=== PATIENT | male | born 1965 | race Caucasian/White ===

== ENCOUNTER 2017-07-17 09:41 | Emergency (ER) | payer BC, OTHER ==
[2017-07-17] MEDS ORDERED: SODIUM CHLORIDE 0.9% 1,000 ML IV STA (10:21)
[2017-07-17] MEDS ORDERED: RX INFO: IV CONTRAST WAS GIVEN 1 EACH MISC MISCELLANE PRN (10:21)
--- NOTE | 2017-07-17 10:29 | ED ---
General Adult HPI - General Chief complaint: Chest Pain Stated complaint: epigastric pain Time Seen by Provider: 07/17/17 09:47 Source: patient, RN notes reviewed, old records reviewed Mode of arrival: ambulatory Limitations: no limitations - History of Present Illness Initial comments: This is a 31-year-old male the ER for evaluation. Patient is ER for evasive chest pain. Multiple issues of chest pain. Patient has high blood pressure today which he states is not normal for him. He is a smoker. Patient complains of right-sided chest pain left-sided chest pain substernal chest pain. Nothing was of right-sided flank pain and right calf pain. No recent travel history. No significant sick contacts. No nausea vomiting or diarrhea - Related Data Previous Rx's Medication Instructions Recorded Metoprolol Tartrate [Lopressor] 25 mg PO BID #60 tablet 07/17/17 Allergies Allergy/AdvReac Type Severity Reaction Status Date / Time No Known Allergies Allergy Verified 07/17/17 10:48 Review of Systems ROS Statement: Those systems with pertinent positive or pertinent negative responses have been documented in the HPI. ROS Other: All systems not noted in ROS Statement are negative. 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 Absent: scleral icterus, conjunctival injection, periorbital swelling ENT exam: Present: normal exam, mucous membranes moist Neck exam: Present: normal inspection. Absent: tenderness, meningismus, lymphadenopathy Respiratory exam: Present: normal lung sounds bilaterally. Absent: respiratory distress, wheezes, rales, rhonchi, stridor Cardiovascular Exam: Present: regular rate, normal rhythm, normal heart sounds. Absent: systolic murmur, diastolic murmur, rubs, gallop, clicks GI/Abdominal exam: Present: soft, normal bowel sounds. Absent: distended, tenderness, guarding, rebound, rigid Extremities exam: Present: normal inspection, full ROM, normal capillary refill. Absent: tenderness, pedal edema, joint swelling, calf tenderness Back exam: Present: normal inspection Neurological exam: Present: alert, oriented X3, CN II-XII intact Psychiatric exam: Present: normal affect, normal mood Skin exam: Present: warm, dry, intact, normal color. Absent: rash Course Vital Signs 07/17/17 07/17/17 07/17/17 09:43 10:01 12:01 Temperature 98.0 F Pulse Rate 102 H 63 81 Respiratory 18 18 20 Rate Blood Pressure 189/92 199/99 189/109 O2 Sat by Pulse 95 98 97 Oximetry EKG Findings - EKG Comments: EKG Findings:: EKG shows normal sinus rhythm rate of 66, PA 156, QRS 94, QTc 434 Medical Decision Making - Lab Data Result diagrams: 07/17/17 10:00 07/17/17 10:00 Lab Results 07/17/17 07/17/17 07/17/17 Range/Units 10:00 10:00 10:00 WBC 7.3 (3.8-10.6) k/uL RBC 5.32 (4.30-5.90) m/uL Hgb 15.8 (13.0-17.5) gm/dL Hct 47.3 (39.0-53.0) % MCV 89.0 (80.0-100.0) fL MCH 29.7 (25.0-35.0) pg MCHC 33.4 (31.0-37.0) g/dL RDW 12.8 (11.5-15.5) % Plt Count 266 (150-450) k/uL Neutrophils % 65 % Lymphocytes % 27 % Monocytes % 5 % Eosinophils % 1 % Basophils % 1 % Neutrophils # 4.7 (1.3-7.7) k/uL Lymphocytes # 2.0 (1.0-4.8) k/uL Monocytes # 0.4 (0-1.0) k/uL Eosinophils # 0.1 (0-0.7) k/uL Basophils # 0.1 (0-0.2) k/uL PT (9.0-12.0) sec INR (<1.2) APTT (22.0-30.0) sec Sodium 143 (137-145) mmol/L Potassium 4.6 (3.5-5.1) mmol/L Chloride 102 (98-107) mmol/L Carbon Dioxide 30 (22-30) mmol/L Anion Gap 11 mmol/L BUN 8 L (9-20) mg/dL Creatinine 0.80 (0.66-1.25) mg/dL Est GFR (CKD-EPI)AfAm >90 (>60 ml/min/1.73 sqM) Est GFR (CKD-EPI)NonAf >90 (>60 ml/min/1.73 sqM) Glucose 89 (74-99) mg/dL Calcium 9.3 (8.4-10.2) mg/dL Magnesium 2.0 (1.6-2.3) mg/dL Total Bilirubin 0.4 (0.2-1.3) mg/dL AST 21 (17-59) U/L ALT 25 (21-72) U/L Alkaline Phosphatase 99 (38-126) U/L Total Creatine Kinase 69 (55-170) U/L CK-MB (CK-2) 0.7 (0.0-2.4) ng/mL CK-MB (CK-2) Rel Index 1.0 Troponin I <0.012 (0.000-0.034) ng/mL Total Protein 7.0 (6.3-8.2) g/dL Albumin 4.2 (3.5-5.0) g/dL Lipase 30 (23-300) U/L 07/17/17 Range/Units 10:00 WBC (3.8-10.6) k/uL RBC (4.30-5.90) m/uL Hgb (13.0-17.5) gm/dL Hct (39.0-53.0) % MCV (80.0-100.0) fL MCH (25.0-35.0) pg MCHC (31.0-37.0) g/dL RDW (11.5-15.5) % Plt Count (150-450) k/uL Neutrophils % % Lymphocytes % % Monocytes % % Eosinophils % % Basophils % % Neutrophils # (1.3-7.7) k/uL Lymphocytes # (1.0-4.8) k/uL Monocytes # (0-1.0) k/uL Eosinophils # (0-0.7) k/uL Basophils # (0-0.2) k/uL PT 9.4 (9.0-12.0) sec INR 0.9 (<1.2) APTT 24.6 (22.0-30.0) sec Sodium (137-145) mmol/L Potassium (3.5-5.1) mmol/L Chloride (98-107) mmol/L Carbon Dioxide (22-30) mmol/L Anion Gap mmol/L BUN (9-20) mg/dL Creatinine (0.66-1.25) mg/dL Est GFR (CKD-EPI)AfAm (>60 ml/min/1.73 sqM) Est GFR (CKD-EPI)NonAf (>60 ml/min/1.73 sqM) Glucose (74-99) mg/dL Calcium (8.4-10.2) mg/dL Magnesium (1.6-2.3) mg/dL Total Bilirubin (0.2-1.3) mg/dL AST (17-59) U/L ALT (21-72) U/L Alkaline Phosphatase (38-126) U/L Total Creatine Kinase (55-170) U/L CK-MB (CK-2) (0.0-2.4) ng/mL CK-MB (CK-2) Rel Index Troponin I (0.000-0.034) ng/mL Total Protein (6.3-8.2) g/dL Albumin (3.5-5.0) g/dL Lipase (23-300) U/L Disposition Clinical Impression: Chest pain, Hypertension Disposition: HOME SELF-CARE Condition: Good Instructions: Chest Pain (ED), Hypertension (ED) Prescriptions: Metoprolol Tartrate [Lopressor] 25 mg PO BID #60 tablet Is patient prescribed a controlled substance at d/c from ED?: No Referrals: [facility],Clinic [Primary Care Provider] - 1-2 days
[2017-07-17 10:33] LABS: Basophils # (A) 0.1 k/uL (0-0.2); Basophils % (A) 1 %; Eosinophils # (A) 0.1 k/uL (0-0.7); Eosinophils % (A) 1 %; HCT 47.3 % (39.0-53.0); HGB 15.8 gm/dL (13.0-17.5); Lymphocytes % (A) 27 %; MCH 29.7 pg (25.0-35.0); MCHC 33.4 g/dL (31.0-37.0); Mean Platelet Volume 8.4; Monocytes # (A) 0.4 k/uL (0-1.0); Monocytes % (A) 5 %; Neutrophils # (A) 4.7 k/uL (1.3-7.7); Neutrophils % (A) 65 %; Platelet Count 266 k/uL (150-450); RBC 5.32 m/uL (4.30-5.90); RDW 12.8 % (11.5-15.5); WBC 7.3 k/uL (3.8-10.6)
[2017-07-17 10:41] LABS: ALT 25 U/L (21-72); AST 21 U/L (17-59); Albumin 4.2 g/dL (3.5-5.0); Alkaline Phosphatase 99 U/L (38-126); Anion Gap 11 mmol/L; Blood Urea Nitrogen 8 mg/dL (9-20); Calcium 9.3 mg/dL (8.4-10.2); Carbon Dioxide 30 mmol/L (22-30); Chloride 102 mmol/L (98-107); Glucose 89 mg/dL (74-99); Lipase 30 U/L (23-300); Potassium 4.6 mmol/L (3.5-5.1); Sodium 143 mmol/L (137-145); Total Bilirubin 0.4 mg/dL (0.2-1.3)
[2017-07-17 10:52] LABS: INR 0.9 (<1.2); Partial Thromboplastin Time 24.6 sec (22.0-30.0); Prothrombin Time 9.4 sec (9.0-12.0)
[2017-07-17 10:55] LABS: Creatine Kinase 69 U/L (55-170)
[2017-07-17 11:08] LABS: Creatine Kinase MB 0.7 ng/mL (0.0-2.4); Troponin I <0.012 ng/mL (0.000-0.034)
--- NOTE | 2017-07-17 11:41 | CT ---
EXAMINATION TYPE: CT angio chest DATE OF EXAM: 07/17/2017 COMPARISON: NONE HISTORY: Upper Abdominal pain and chest discomfort. CT DLP: 457 mGycm CONTRAST: CT chest with contrast and 3D reconstruction with MIP imaging is performed with IV Contrast, patient injected with 100 mL of Isovue 370. Contrast-enhanced CT of the chest was performed through the course of the pulmonary arteries with jazzy g and mediastinal window settings submitted. 3D reconstruction with MIP imaging was also performed. PULMONARY ARTERIES: The pulmonary arteries and their major tributaries are patent. I do not see tex dence for sizable filling defect to suggest pulmonary embolic process. LUNGS: The lungs are clear and free of infiltrate. No evidence for atelectasis. 6.6 mm pulmonary nodu le right lower lobe image 115 and 14. Short-term follow-up study is recommended in 3 months to assess for interval change. No additional nodules appreciated. No pleural effusion. MEDIASTINUM: Thoracic aorta is of normal caliber,however, evaluation is limited given timing of the contrast bolus. If there is concern for thoracic aortic pathology consider KRISTA. Correlate clinicall y . The heart is not enlarged. No evidence for mediastinal mass. No mediastinal lymph nodes greater than 1cm. HILAR STRUCTURES: No evidence for mass. No hilar lymph nodes greater than 1 cm. UPPER ABDOMEN: No significant abnormality is seen. IMPRESSION: 1. No evidence for Pulmonary embolism at this time. 2. Nonspecific right lower lobe pulmonary nodule. Short-term follow-up recommended.
--- NOTE | 2017-07-17 11:47 | CT ---
EXAMINATION TYPE: CT abdomen pelvis w con DATE OF EXAM: 07/17/2017 COMPARISON: NONE HISTORY: Upper Abdominal pain and chest discomfort. CT DLP: 1572.9 mGycm CONTRAST: CT scan of the abdomen and pelvis is performed without Oral Contrast and with IV Contrast, patient in jected with 100 mL of Isovue 370. FINDINGS: LUNG BASES-: Pulmonary nodule described on CT chest. No infiltrate. Small sliding-type hiatal hernia. LIVER/GB: No calcified gallstones. No solid space occupying hepatic lesion. Biliary tree is of nor mal caliber. Hepatic cyst and small focal granuloma. PANCREAS: No inflammation. No distinct mass. SPLEEN: No splenic enlargement. No lesion seen. Splenic granulomas identified. ADRENALS: No nodule. No thickening. KIDNEYS/BLADDER: Exophytic solid renal lesion mid pole right kidney posteriorly measuring 1.8 x 1.8 c m felt to reflect malignancy until proven otherwise. consult recommended. 1.2 cm cystic lesion mid pole right kidney. No left renal lesions. No hydronephrosis or nephrolithiasis. BOWEL: Normal appendix. Normal bowel caliber. No inflammation. GENITAL ORGANS: No gross abnormality. LYMPH NODES: No greater than 1cm abdominal or pelvic lymph nodes are appreciated. AORTA: No significant abnormality. OSSEOUS STRUCTURES: No significant abnormality is seen. OTHER: Fat-containing inguinal hernias noted.. IMPRESSION: 1. No acute intra-abdominal process identified at this time. 2. Solid right renal lesion suspicious for malignancy. consult recommended. 3. Solitary nodule right lower lobe. Metastatic disease is not excluded. 4. Cystic subcentimeter lesion within the anterior segment right hepatic lobe. Splenic and hepatic gr anuloma ptosis.
[2017-07-17] MEDS ORDERED: LABETALOL 5 MG/ML VIAL MDV IVP STA (12:53)
[2017-07-17 13:01] VITALS: RESP 18; TEMP 98.3
[2017-07-17 13:14] VITALS: BP 157/85; PULSE 55
== END 2017-07-17 13:20 | disposition home or self-care (01) ==
LOC: EC 09:41
DX: R07.2 Precordial pain (principal); I10 Essential (primary) hypertension; F17.200 Nicotine dependence, unspecified, uncomplicated
CPT/HCPCS: 36415; 71275; 74177; 80053; 82550; 82553; 83690; 83735; 84484; 85025; 85610; 85730; 93005; 96361; 96374; 99285

== ENCOUNTER 2017-08-09 22:07 | Emergency (ER) | payer OTHER ==
[2017-08-09 22:19] VITALS: RESP 18
[2017-08-09] MEDS ORDERED: ASPIRIN 81 MG PO STA (22:34)
--- NOTE | 2017-08-09 22:40 | ED ---
General Adult HPI - General Chief complaint: Arrhythmia/Palpitations Stated complaint: blood pressure/heart concerns/pain on left side Time Seen by Provider: 08/09/17 22:24 Source: patient Mode of arrival: ambulatory Limitations: no limitations - History of Present Illness Initial comments: This 51-year-old white male presents with multiple complaints. He states that he has been watching his blood pressure recently and his monitor apparently said that he had an abnormal rhythm and therefore he is worried that he may be having an arrhythmia. He denies any actual palpitations. He then apparently over the past day developed some pain to his left axillary region. He also had some pain to his left groin region medially. He developed a sensation of coldness and tingling to his left lower leg. He also relates a left hand and forearm numbness and cool sensation at times as well as some facial flushing. He denies any actual chest pain or shortness of breath. He apparently was here 2 weeks ago for some chest and/or abdominal pain. He had a computed tomography scan of his abdomen and pelvis at that time and states that it showed a lung and kidney nodule. He was discharged home at that time. He denies any known cardiac disease. He has never had a stress test or heart catheterization. He denies any leg pain or swelling. He states that he had encephalitis when he was in the and does have some chronic left upper and left lower extremity numbness. He denies any other complaints or modifying factors. - Related Data Previous Rx's Medication Instructions Recorded Metoprolol Tartrate [Lopressor] 25 mg PO BID #60 tablet 07/17/17 Allergies Allergy/AdvReac Type Severity Reaction Status Date / Time No Known Allergies Allergy Verified 08/09/17 22:19 Review of Systems ROS Statement: Those systems with pertinent positive or pertinent negative responses have been documented in the HPI. ROS Other: All systems not noted in ROS Statement are negative. Past Medical History Past Medical History: Hyperlipidemia, Hypertension Additional Past Medical History / Comment(s): encephalitis History of Any Multi-Drug Resistant Organisms: None Reported Past Surgical History: Ear Surgery Additional Past Surgical History / Comment(s): cataract Past Psychological History: No Psychological Hx Reported Smoking Status: Current every day smoker Past Alcohol Use History: None Reported Past Drug Use History: None Reported General Exam - General Exam Comments Initial Comments: GENERAL: The patient is well nourished and well hydrated. VITAL SIGNS: Heart rate, blood pressure, respiratory rate reviewed as recorded in nurse's notes. EYES: Pupils are round and reactive. Extraocular movements are intact. No conjunctival / lid redness or swelling. ENT: No external evidence of injury, swelling, or ecchymosis. Airway is patent. Throat is clear. NECK: Nontender. No swelling or evidence of injury. No subcutaneous emphysema. Trachea is midline. No thyroid mass. HEART: Regular rate and rhythm. Good peripheral pulses. LUNGS/CHEST: Breath sounds clear and equal bilaterally. No rales, rhonchi, or wheezes. No ecchymosis, subcutaneous emphysema, or tenderness. ABDOMEN: Abdomen soft without tenderness. No palpable masses or organomegaly. No peritoneal signs. No abdominal wall swelling or ecchymosis. EXTREMITIES: No extremity tenderness. Normal muscle tone and function. No thoracolumbar tenderness. NEUROLOGIC: Sensation is grossly intact. Cranial nerve exam reveals face is symmetrical, tongue is midline, speech is clear. SKIN: No abrasions or ecchymosis is noted. No induration or masses noted. PSYCHIATRIC: Alert and oriented. Appropriate behavior and judgment. Limitations: no limitations Course Vital Signs 08/09/17 22:14 Temperature 97.7 F Pulse Rate 67 Respiratory 18 Rate Blood Pressure 137/76 O2 Sat by Pulse 97 Oximetry Medical Decision Making - Medical Decision Making The patient was seen and examined. All diagnostics were reviewed. An IV is started and he is placed on a electronic device monitor. No ectopy is identified. The EKG shows a normal sinus rhythm at a rate of 65. There is no acute ST-T wave changes identified. The CO intervals 154, QRS duration is 96, and the QTC intervals 420. He does receive an aspirin orally. The x-ray did not show any acute processes. The laboratory is all essentially within normal limits/ unremarkable. He does get slightly bradycardic at times with his heart rate dropping down to approximately 55 on the heart monitor. His blood pressure is quite improved on recheck as well. The exact cause of his symptomatology is not definitively determined. It is felt as though it is very atypical for any cardiac ischemia but it is still possible and therefore he is offered admission to the hospital. A long discussion was held regarding risks benefits of admission versus discharge and he would prefer to the discharge. He also is worried about his blood pressure being elevated. It has been elevated at times but he did take his blood pressure medicine just prior to coming to the ER. He states that he will follow-up with his doctor tomorrow and arrange an outpatient stress test. He is instructed to return to the ER if symptoms do worsen. - Lab Data Result diagrams: 08/09/17 22:22 08/09/17 22:22 Lab Results 08/09/17 08/09/17 08/09/17 Range/Units 22:22 22:22 22:22 WBC 7.3 (3.8-10.6) k/uL RBC 5.20 (4.30-5.90) m/uL Hgb 15.5 (13.0-17.5) gm/dL Hct 45.9 (39.0-53.0) % MCV 88.2 (80.0-100.0) fL MCH 29.8 (25.0-35.0) pg MCHC 33.8 (31.0-37.0) g/dL RDW 12.6 (11.5-15.5) % Plt Count 210 (150-450) k/uL Neutrophils % 60 % Lymphocytes % 29 % Monocytes % 8 % Eosinophils % 2 % Basophils % 1 % Neutrophils # 4.4 (1.3-7.7) k/uL Lymphocytes # 2.1 (1.0-4.8) k/uL Monocytes # 0.6 (0-1.0) k/uL Eosinophils # 0.1 (0-0.7) k/uL Basophils # 0.1 (0-0.2) k/uL PT (9.0-12.0) sec INR (<1.2) APTT (22.0-30.0) sec Sodium 138 (137-145) mmol/L Potassium 4.6 (3.5-5.1) mmol/L Chloride 100 (98-107) mmol/L Carbon Dioxide 27 (22-30) mmol/L Anion Gap 11 mmol/L BUN 13 (9-20) mg/dL Creatinine 0.90 (0.66-1.25) mg/dL Est GFR (CKD-EPI)AfAm >90 (>60 ml/min/1.73 sqM) Est GFR (CKD-EPI)NonAf >90 (>60 ml/min/1.73 sqM) Glucose 87 (74-99) mg/dL Calcium 9.4 (8.4-10.2) mg/dL Magnesium 2.1 (1.6-2.3) mg/dL Total Bilirubin 0.4 (0.2-1.3) mg/dL AST 20 (17-59) U/L ALT 33 (21-72) U/L Alkaline Phosphatase 91 (38-126) U/L Total Creatine Kinase 106 (55-170) U/L CK-MB (CK-2) 0.7 (0.0-2.4) ng/mL CK-MB (CK-2) Rel Index 0.7 Troponin I <0.012 (0.000-0.034) ng/mL Total Protein 7.0 (6.3-8.2) g/dL Albumin 4.2 (3.5-5.0) g/dL 08/09/17 Range/Units 22:22 WBC (3.8-10.6) k/uL RBC (4.30-5.90) m/uL Hgb (13.0-17.5) gm/dL Hct (39.0-53.0) % MCV (80.0-100.0) fL MCH (25.0-35.0) pg MCHC (31.0-37.0) g/dL RDW (11.5-15.5) % Plt Count (150-450) k/uL Neutrophils % % Lymphocytes % % Monocytes % % Eosinophils % % Basophils % % Neutrophils # (1.3-7.7) k/uL Lymphocytes # (1.0-4.8) k/uL Monocytes # (0-1.0) k/uL Eosinophils # (0-0.7) k/uL Basophils # (0-0.2) k/uL PT 9.5 (9.0-12.0) sec INR 1.0 (<1.2) APTT 25.5 (22.0-30.0) sec Sodium (137-145) mmol/L Potassium (3.5-5.1) mmol/L Chloride (98-107) mmol/L Carbon Dioxide (22-30) mmol/L Anion Gap mmol/L BUN (9-20) mg/dL Creatinine (0.66-1.25) mg/dL Est GFR (CKD-EPI)AfAm (>60 ml/min/1.73 sqM) Est GFR (CKD-EPI)NonAf (>60 ml/min/1.73 sqM) Glucose (74-99) mg/dL Calcium (8.4-10.2) mg/dL Magnesium (1.6-2.3) mg/dL Total Bilirubin (0.2-1.3) mg/dL AST (17-59) U/L ALT (21-72) U/L Alkaline Phosphatase (38-126) U/L Total Creatine Kinase (55-170) U/L CK-MB (CK-2) (0.0-2.4) ng/mL CK-MB (CK-2) Rel Index Troponin I (0.000-0.034) ng/mL Total Protein (6.3-8.2) g/dL Albumin (3.5-5.0) g/dL Disposition Clinical Impression: Left arm pain, Left groin pain, Paresthesias Disposition: HOME SELF-CARE Condition: Good Instructions: Paresthesia (ED), Arm Pain (ED), Leg Pain (ED) Is patient prescribed a controlled substance at d/c from ED?: No Referrals: [facility],Clinic [Primary Care Provider] - 1-2 days Time of Disposition: 00:26
[2017-08-09 23:04] LABS: Basophils # (A) 0.1 k/uL (0-0.2); Basophils % (A) 1 %; Eosinophils # (A) 0.1 k/uL (0-0.7); Eosinophils % (A) 2 %; HCT 45.9 % (39.0-53.0); HGB 15.5 gm/dL (13.0-17.5); Lymphocytes # (A) 2.1 k/uL (1.0-4.8); Lymphocytes % (A) 29 %; MCH 29.8 pg (25.0-35.0); MCHC 33.8 g/dL (31.0-37.0); MCV 88.2 fL (80.0-100.0); Mean Platelet Volume 8.3; Monocytes # (A) 0.6 k/uL (0-1.0); Monocytes % (A) 8 %; Neutrophils # (A) 4.4 k/uL (1.3-7.7); Neutrophils % (A) 60 %; Platelet Count 210 k/uL (150-450); RDW 12.6 % (11.5-15.5); WBC 7.3 k/uL (3.8-10.6)
[2017-08-09 23:15] LABS: ALT 33 U/L (21-72); AST 20 U/L (17-59); Albumin 4.2 g/dL (3.5-5.0); Alkaline Phosphatase 91 U/L (38-126); Anion Gap 11 mmol/L; Blood Urea Nitrogen 13 mg/dL (9-20); Calcium 9.4 mg/dL (8.4-10.2); Carbon Dioxide 27 mmol/L (22-30); Chloride 100 mmol/L (98-107); Glucose 87 mg/dL (74-99); Magnesium 2.1 mg/dL (1.6-2.3); Potassium 4.6 mmol/L (3.5-5.1); Sodium 138 mmol/L (137-145); Total Bilirubin 0.4 mg/dL (0.2-1.3)
[2017-08-09 23:17] LABS: Partial Thromboplastin Time 25.5 sec (22.0-30.0); Prothrombin Time 9.5 sec (9.0-12.0)
[2017-08-09 23:48] LABS: Creatine Kinase 106 U/L (55-170)
[2017-08-09 23:59] LABS: Creatine Kinase MB 0.7 ng/mL (0.0-2.4); Troponin I <0.012 ng/mL (0.000-0.034)
--- NOTE | 2017-08-10 00:27 | XR ---
EXAMINATION TYPE: XR chest 2V DATE OF EXAM: 08/09/2017 COMPARISON: NONE HISTORY: Dizziness. Arrhythmia. TECHNIQUE: Frontal and lateral views of the chest are obtained. FINDINGS: Heart and mediastinum are normal. Lungs are clear. Diaphragm is normal. There are chest le ads. Bony thorax is intact. IMPRESSION: Normal chest
[2017-08-10 00:36] VITALS: BP 146/80; PULSE 57; TEMP 97.2
== END 2017-08-10 00:43 | disposition home or self-care (01) ==
LOC: EC 22:07
DX: M79.622 Pain in left upper arm (principal); R10.32 Left lower quadrant pain; R20.2 Paresthesia of skin; R00.1 Bradycardia, unspecified; I10 Essential (primary) hypertension; R20.0 Anesthesia of skin; F17.200 Nicotine dependence, unspecified, uncomplicated
CPT/HCPCS: 36415; 71046; 80053; 82550; 82553; 83735; 84484; 85025; 85610; 85730; 93005; 99283

== ENCOUNTER → 2017-11-18 | Outpatient (CLI) | payer OTHER ==
[2017-11-18 10:43] LABS: Blood Urea Nitrogen 13 mg/dL (9-20)
--- NOTE | 2017-11-18 12:28 | CT ---
EXAMINATION TYPE: CT angio chest DATE OF EXAM: 11/18/2017 COMPARISON: 07/17/2017 HISTORY: Follow up pulmonary nodule and renal mass. CT DLP: 390.82 mGycm CONTRAST: CTA thoracic aorta with 3-D reconstruction is performed and with IV Contrast, patient injected with 1 00 mL of Isovue 370. Contrast CTA of the thoracic aorta was performed from the lung apex through the upper abdomen. 3D re construction imaging obtained at a separate workstation. CT Chest: THORACIC AORTA: No evidence for thoracic aortic aneurysm. Mild atheromatous changes seen. There is n o evidence for dissection or periaortic collection. LUNGS: Stable indeterminant the right lower lobe pulmonary nodule measuring 6.6 mm in greatest dimens ion versus 6.6 mm previously. No new nodules identified. Additional nodular density right lower lobe measures 3.6 mm versus 6.7 mm previously. 2 adjacent 3 mm pulmonary nodules are stable about the left hilum. No evidence for infiltrate. No pleural effusion or CT evidence of interstitial lung disease. MEDIASTINUM: No evidence for mediastinal hematoma. The heart is not enlarged. No evidence for med iastinal mass or adenopathy. HILAR STRUCTURES: No evidence for mass. No hilar adenopathy is appreciated. OTHER: See report of abdomen for solid right renal lesion. IMPRESSION- 1. Stable nonspecific pulmonary nodularity. Continued follow-up is advised.
--- NOTE | 2017-11-18 14:21 | CT ---
EXAMINATION TYPE: CT abdomen w con DATE OF EXAM: 11/18/2017 COMPARISON: 07/17/2017 HISTORY: Follow up pulmonary nodule and renal mass. CT DLP: 819.2 mGycm CONTRAST: CT scan of the abdomen is performed with Oral Contrast and with IV Contrast, patient injected with 10 0 mL of Isovue 370. FINDINGS: LUNG BASES-: See CT report of the chest from the same day. LIVER/GB: No calcified gallstones. No solid space occupying hepatic lesion. 8 mm cyst anterior seg ment right hepatic lobe. Biliary tree is of normal caliber. PANCREAS: No inflammation. No distinct mass. SPLEEN: No splenic enlargement. No lesion seen. Splenic granulomas noted. ADRENALS: No nodule. No thickening. KIDNEYS/BLADDER: Exophytic solid right renal mass measures 1.8 x 1.7 cm unchanged from prior measurem ent of 1.8 x 1.8 cm. No new solid renal lesions are identified. Small cyst is noted upper pole right kidney measuring 1.1 cm. BOWEL: Normal appendix. Normal bowel caliber. No inflammation. LYMPH NODES: No greater than 1cm abdominal or pelvic lymph nodes are appreciated. AORTA: No significant abnormality. OSSEOUS STRUCTURES: No significant abnormality is seen. OTHER: No significant additional abnormality is seen. IMPRESSION: 1. Exophytic solid right renal mass measures 1.8 x 1.7 cm unchanged from prior measurement of 1.8 x 1 .8 cm. No new solid renal lesions are identified.
== END | disposition home or self-care (01) ==
LOC: RADCTMAIN 10:01
DX: R91.1 Solitary pulmonary nodule (principal); N28.89 Other specified disorders of kidney and ureter
CPT/HCPCS: 82565; 84520; 74160; 71275; 36415; Q9967

== ENCOUNTER → 2017-11-18 | Outpatient (CLI) | payer OTHER | END | disposition home or self-care (01) | LOC: RADCTMAIN 09:56 | PROVIDERS: ATTEND Urology | DX: Z53.9 Procedure and treatment not carried out, unspecified reason (principal) ==

== ENCOUNTER → 2018-05-25 | Outpatient (CLI) | payer OTHER ==
--- NOTE | 2018-05-25 09:46 | CT ---
EXAMINATION TYPE: CT angio chest DATE OF EXAM: 05/25/2018 COMPARISON: CTA chest November 18, [address] July 17, 2017 HISTORY: Solitary pulmonary nodule CT DLP: 366.0 mGycm. Automated Exposure Control for Dose Reduction was Utilized. CONTRAST: CTA scan of the thorax is performed with IV Contrast, patient injected with 100 mL of Isovue 300, pul monary embolism protocol. MIP Images are created on CT scanner and reviewed. FINDINGS: LUNGS: There is 8 x 4 mm lateral right lower lobe nodule axial image 117 grossly stable in size and a ppearance from last 2 CTs accounting for technical differences. 2 adjacent 3 mm nodules left hilar l evel axial image 81 are stable. No new noncalcified nodules or masses are present. There is stable 6 mm calcified nodule or granuloma noted. There is stable calcified 3 mm nodule left hilar region anter iorly axial image 80. There is no pleural effusion or pneumothorax seen. The tracheobronchial tree i s patent. MEDIASTINUM: There is poor bolus without central pulmonary embolism. There are no greater than 1 cm hilar or mediastinal lymph nodes. No cardiomegaly or pericardial effusion is seen. Aorta shows no a neurysmal change or dissection. Normal three-vessel origin is present. OTHER: Please refer to same day CT abdomen report for complete details on the abdomen. IMPRESSION: Stable dominant 8 x 4 mm noncalcified nodule right lower lobe. No new nodules are evident . Follow-up CT in 1 year time is advised to document two-year stability.
--- NOTE | 2018-05-25 10:15 | CT ---
EXAMINATION TYPE: CT abdomen wo/w con DATE OF EXAM: 05/25/2018 COMPARISON: CT abdomen November 18, 2017 and July 17, 2017 HISTORY: Lesion on right kidney CT DLP: 1321.40 mGycm, Automated Exposure Control for Dose Reduction was Utilized. CONTRAST: CT scan of the abdomen is performed with oral and without and with IV Contrast, patient injected with 100 mL of Isovue 300. FINDINGS: LUNG BASES: Please refer to same day CTA chest report for complete details about the lung bases. LIVER/GB: There are few small subcentimeter hypodense lesions scattered throughout the hepatic dome a s well as few small cortical calculi. Lesions are stable and too small to further characterize per pr esumed benign. PANCREAS: No significant abnormality is seen. SPLEEN: Multiple calcifications throughout the spleen are redemonstrated. Liver and spleen findings a re presumed product of old granulomatous disease. ADRENALS: No significant abnormality is seen. KIDNEYS: Noncontrast images show no renal calculi bilaterally. Postcontrast images show symmetric cor tical medullary uptake and excretion from both kidneys without evidence of hydronephrosis bilaterally . Left kidney shows stable subcentimeter low dense lesion posterior lateral aspect seen best series 7 image 24 mid pole level 2 small to further characterize but presumed benign simple cyst. Right kidne y shows exophytic low dense lesion measuring 1.8 x 1.2 cm axial image 20 series 7 consistent with sim ple thin-walled cyst perhaps slightly larger in size from prior studies still benign morphology. Ther e is however inferior and medial to this exophytic enhancing 2.0 x 1.6 cm solid mass not significantl y changed from prior CTs but suspicious for focal renal cell carcinoma. No new masses are evident. No adjacent adenopathy is seen. Patency of right renal vein is noted. BOWEL: Oral contrast reaches level of the proximal sigmoid colon. There is suboptimal evaluation of s tomach due to poor contrast distention as contrast has cleared. There is no suspicious small or large bowel dilatation. LYMPH NODES: No greater than 1cm abdominal lymph nodes are appreciated. OSSEOUS STRUCTURES: Moderate disc space narrowing with vacuum disc phenomenon L5-S1 level is present. OTHER: No significant additional abnormality is seen. IMPRESSION: Stable suspicious 2.0 cm exophytic posterior medial right midpole mass worrisome for foca l renal cell carcinoma. This lesion may be amenable to imaging guided RFA, microwave ablation, or cry oablation. Consider interventional referral if has not been performed.
== END | disposition home or self-care (01) ==
LOC: RADCTMAIN 07:26
DX: R91.1 Solitary pulmonary nodule (principal); R93.5 Abnormal findings on diagnostic imaging of other abdominal regions, including retroperitoneum
CPT/HCPCS: 74170; 71275; Q9967

== ENCOUNTER 2018-07-13 07:50 | Day surgery (SDC) | payer OTHER ==
[2018-07-13 08:52] LABS: Mean Platelet Volume 7.9; Platelet Count 239 k/uL (150-450)
[2018-07-13 08:57] LABS: INR 0.9 (<1.2); Prothrombin Time 9.9 sec (9.0-12.0)
[2018-07-13 10:36] VITALS: RESP 18; TEMP 98.3
[2018-07-13 12:01] VITALS: BP 122/74; PULSE 56
--- NOTE | 2018-07-13 14:08 | CT ---
EXAMINATION TYPE: CT biopsy renal RT DATE OF EXAM: 07/13/2018 HISTORY: Right renal mass COMPARISON: CT 05/25/2018 Maximal barrier technique was utilized. The skin overlying a suitable path to the lesion was localiz ed using CT and the overlying skin was prepped and draped. Lidocaine used for local anesthesia. A s kin ida made with a scalpel. Using CT guidance, access was gained to the lesion with a 17-gauge erich de needle. Coaxial placement of an 18-gauge needle was then performed then a coaxial core biopsy spec imen submitted to pathology in formalin. 1 pass performed in all. Following the procedure no immedi ate complications. The patient is discharged in stable condition. Hemostasis achieved. IMPRESSION: SUCCESSFUL CT GUIDED CORE RENAL MASS BIOPSY. PATHOLOGY PENDING. THIS PROCEDURE WAS PERFORMED BY THE UNDERSIGNED.
== END 2018-07-13 12:12 | disposition home or self-care (01) ==
LOC: RADPROMAIN 07:50 → 1SOBS 10:15 → RADPROMAIN 12:12
PROVIDERS: ATTEND Urology
DX: C64.1 Malignant neoplasm of right kidney, except renal pelvis (principal)
CPT/HCPCS: 36415; 77012; 85049; 85610; 88305; 88341; 88342

== ENCOUNTER → 2019-01-10 | Outpatient (CLI) | payer OTHER ==
[2019-01-10 13:24] LABS: African American GFR (CKD) >90 (>60 ml/min/1.73 sqM); Blood Urea Nitrogen 13 mg/dL (9-20); Non-African American GFR(CKD) >90 (>60 ml/min/1.73 sqM)
--- NOTE | 2019-01-10 15:37 | CT ---
EXAMINATION TYPE: CT abdomen pelvis wo/w con DATE OF EXAM: 01/10/2019 COMPARISON: 07/13/2018, 05/25/2018 INDICATION: Follow up for right renal cancer. DLP: 1203.9 mGycm, Automated exposure control for dose reduction was used. CONTRAST: 100ml mL of Isovue 300. Study performed with Oral Contrast TECHNIQUE: Axial images were obtained from above the diaphragm to the pubic rami in the axial plane a t 5 mm thick sections. Reconstructed images are reviewed on the computer in the coronal plane. FINDINGS: Limited CT sections are obtained the lung bases. The initial lung window there is an area of increas ed density within the right middle lobe. Series 6 image 1.. A 0.6 cm posterior-lateral left lung nod ule is diminished in size over the interval. A 0.9 x 0.5 cm peripheral posterior lateral right lower lobe nodules present maybe 1 mm larger than comparison. A 0.4 cm nodules in the posterior lateral lef t lung base. CT ABDOMEN: Liver: Normal Spleen: Multiple calcified splenic granulomata are present. Pancreas: Normal Adrenal glands: The adrenal glands are normal. Gallbladder: Normal Kidneys: No masses are evident. No hydronephrosis is present. No cysts are present. Delayed images were obtained through the kidneys, which remain unremarkable. Aorta: Normal Inferior vena cava: Normal. CT PELVIS: Loops of bowel within the abdomen and pelvis are normal. There are loops of bowel which are incom pletely distended or lack oral contrast limiting their evaluation. Appendix: Normal as visualized. Urinary bladder: Normal. Genitourinary structures: Prostate is prominent. Osseous structures: No suspicious lytic or sclerotic lesions. IMPRESSIONS: 1. No suspicious acute changes CT abdomen or pelvis. 2. There are some new nodules identified at the lung bases discussed above. Consider CT chest for add itional evaluation. A static disease is not excluded
== END | disposition home or self-care (01) ==
LOC: RADCTMAIN 12:45
DX: C65.9 Malignant neoplasm of unspecified renal pelvis (principal); R91.8 Other nonspecific abnormal finding of lung field
CPT/HCPCS: 82565; 84520; 74178; 36415; Q9967

== ENCOUNTER → 2019-02-02 | Outpatient (CLI) | payer OTHER ==
[2019-02-02 08:55] LABS: African American GFR (CKD) >90 (>60 ml/min/1.73 sqM); Blood Urea Nitrogen 11 mg/dL (9-20)
--- NOTE | 2019-02-02 10:55 | CT ---
EXAMINATION TYPE: CT chest wo/w con DATE OF EXAM: 02/02/2019 COMPARISON: CT chest 05/25/2018 HISTORY: Abnormal findings CT DLP: 635.20 mGycm Automated exposure control for dose reduction was used. CONTRAST: CT scan of the chest is performed without and with IV Contrast, patient injected with 100 ml mL of Is ovue 300. FINDINGS: LUNGS: The lungs are stable, there is no concerning parenchymal mass or nodule identified. Calcified nodule in the left upper lobe is also present on axial image #35. There is no pleural effusion or pn eumothorax seen. The tracheobronchial tree is patent. MEDIASTINUM: There are no greater than 1 cm hilar or mediastinal lymph nodes. No pericardial effusi on is seen. There is a calcified left hilar node. AORTA: No additional significant abnormality is seen. OTHER: Scattered calcified nodules are present within the spleen and liver. Some low dense foci with in the liver likely represent cysts and are unchanged. Low dense exophytic focus within the right kid [place] posterior margin is stable. There is a soft tissue mass however which was seen on prior CT along the posterior margin of the midpole the right kidney measuring 2.3 cm which shows enhancement on prio r CT, is of soft tissue attenuation as on prior. Correlate with pathologic findings from renal biopsy of 07/13/2018. IMPRESSION: Findings likely represent old granulomatous disease. Correlate with pathologic report fo r posterior right renal mass.
== END | disposition home or self-care (01) ==
LOC: RADCTMAIN 08:15
DX: R93.89 Abnormal findings on diagnostic imaging of other specified body structures (principal)
CPT/HCPCS: 82565; 84520; 71270; 36415; Q9967

== ENCOUNTER → 2019-11-24 | Outpatient (CLI) | payer OTHER ==
[2019-11-24 11:26] LABS: African American GFR (CKD) >90 (>60 ml/min/1.73 sqM); Blood Urea Nitrogen 8 mg/dL (9-20); Non-African American GFR(CKD) >90 (>60 ml/min/1.73 sqM)
--- NOTE | 2019-11-24 12:11 | CT ---
EXAMINATION TYPE: CT ChestAbdPelvis wo/w con DATE OF EXAM: 11/24/2019 COMPARISON: 02/02/2019 HISTORY: follow up pulmonary nodule, renal cancer CT DLP: 1311.2 mGycm CONTRAST: CT scan of the chest, abdomen and pelvis is performed with Oral Contrast and without and with IV Cont rast, patient injected with 100 mL of Isovue 300. CT Chest: LUNGS: 4 mm nodules right upper lobe image 31 are stable. 5 mm nodule right middle lobe is unchanged as well. 4 mm nodule right lower lobe image 42 is stable. 4.5 mm left lower lobe pulmonary nodule minnie ge 50 is unchanged. Calcified granuloma left perihilar region. Calcified granuloma left upper lobe an teriorly. 7 mm right lower lobe pulmonary nodule is stable image 48. No new nodules seen. No infiltra te or mass. No volume loss evident. MEDIASTINUM: Thoracic aorta is of normal caliber. The heart is not enlarged. No evidence for media stinal mass or adenopathy. HILAR STRUCTURES: No evidence for mass. No hilar adenopathy is appreciated. OTHER: No significant abnormality. CONTRAST CT ABDOMEN AND PELVIS FINDINGS: LIVER/GB: No calcified gallstones. Hepatic calcifications noted. Hepatic cysts also seen. No space occupying hepatic lesion. Biliary tree is of normal caliber. PANCREAS: No inflammation. No distinct mass. SPLEEN: No splenic enlargement. No lesion seen. Calcified granulomas noted. ADRENALS: No nodule. No thickening. KIDNEYS/BLADDER: No hydronephrosis. No nephrolithiasis. Solid mass mid pole right kidney posteriorl y measures 2.1 cm and is felt to reflect malignancy until proven otherwise. Simple cyst mid to upper pole right kidney is also unchanged and measures 2 cm. BOWEL: Normal appendix. Normal bowel caliber. No inflammation. GENITAL ORGANS: No gross abnormality. LYMPH NODES: No greater than 1cm abdominal or pelvic lymph nodes are appreciated. AORTA: No significant abnormality. OSSEOUS STRUCTURES: No significant abnormality is seen. OTHER: No significant additional abnormality is seen. IMPRESSION: 1. Solid mass right kidney is felt to reflect malignancy until proven otherwise. Correlate clinically . 2. Stable scattered pulmonary nodules may reflect calcified and noncalcified granulomatous disease. N odules of other etiology not excluded. Stability over a two-year timeframe should be documented radio graphically. 3. Hepatic cysts.
== END | disposition home or self-care (01) ==
LOC: RADCTMAIN 09:33
DX: R91.8 Other nonspecific abnormal finding of lung field (principal); K76.89 Other specified diseases of liver; N28.89 Other specified disorders of kidney and ureter; C65.9 Malignant neoplasm of unspecified renal pelvis; R91.1 Solitary pulmonary nodule
CPT/HCPCS: 82565; 84520; 71270; 74178; 36415; Q9967

== ENCOUNTER → 2021-11-21 | Outpatient (CLI) | payer OTHER ==
[2021-11-21 15:29] LABS: African American GFR (CKD) >90 (>60 ml/min/1.73 sqM); Blood Urea Nitrogen 10 mg/dL (9-20); Non-African American GFR(CKD) >90 (>60 ml/min/1.73 sqM)
--- NOTE | 2021-11-21 17:08 | CT ---
EXAMINATION TYPE: CT ChestAbdPelvis wo/w con CT DLP: 1544.90 mGycm, Automated exposure control for dose reduction was used. DATE OF EXAM: 11/21/2021 4:09 PM COMPARISON: CT chest and pelvis 11/24/2019, CT chest 02/02/2019, CT abdomen pelvis 01/10/2019, CT renal biopsy 07/13/2018. CLINICAL INDICATION:Male, 55 years old with history of D49.519; PHH, f/u rt kidney ca. obs for mets Technique: Multiple axial images of the chest, abdomen, and pelvis were obtained before and following the intravenous administration of 100 mL Isovue-300. Oral contrast was administered. Two-dimensional coronal and sagittal reconstructions were obtained. Findings: CHEST: LUNGS/ PLEURA: Minimal biapical pleural-parenchymal scarring. No pneumothorax, pleural effusion, foc al consolidation. Stable 4 mm right upper lobe pulmonary nodule (series 4, image 36). Stable 5 mm lef t lower lobe pulmonary nodule (series 4, image 46). Calcified granulomas redemonstrated. No new or en larging pulmonary nodules. AIRWAY: Patent and unremarkable.. HEART: Size within normal limits. . MEDIASTINUM: No gross evidence of adenopathy. VASCULATURE: No aortic aneurysm. MUSCULOSKELETAL: No acute osseous abnormalities. No aggressive osseous lesions. SOFT TISSUES/LYMPH NODES: Unremarkable. LOWER NECK: No significant findings. ABDOMEN: ABDOMEN LIVER: Noncirrhotic morphology. Scattered punctate calcified granulomas. Stable subcentimeter hyperat tenuating foci within both hepatic lobes which are too small to characterize. GALLBLADDER AND BILE DUCTS: Unremarkable. PANCREAS: Unremarkable. SPLEEN: Scattered punctate calcified granulomas. No splenic enlargement. ADRENAL GLANDS: Unremarkable. KIDNEYS AND URETERS: No renal or ureteral calculi. No hydronephrosis. Stable solid peripheral enhanci ng exophytic mass from the mid pole the right kidney measuring 2.3 x 1.6 cm. Stable right mid kidney exophytic cyst measuring up to 2 cm. Additional subcentimeter hypodensity focus of the left kidney is stable and too small accurately characterize. PELVIS BLADDER: Unremarkable REPRODUCTIVE: Unremarkable. ABDOMEN & PELVIS STOMACH AND BOWEL: Stomach and duodenum are unremarkable. No focal wall thickening or surrounding inf lammatory changes. No evidence of bowel obstruction. PERITONEUM: No evidence of pneumoperitoneum or free fluid. VASCULATURE: No evidence of aortic aneurysm. MUSCULOSKELETAL: No acute osseous abnormalities. No aggressive osseous lesions. Mild degenerative grant nges of the spine at L5-S1 with disc space narrowing, endplate sclerosis, vacuum disc disease. Mild r etrolisthesis of L5 on S1. LYMPH NODES: No gross evidence for lymphadenopathy. SOFT TISSUE/ABDOMINAL WALL: Unremarkable IMPRESSION: 1. Stable solid right renal enhancing exophytic mass from prior examination 11/24/2019. Correlation wi biopsy results is recommended. No evidence for metastatic disease within the abdomen and pelvis. 2. Sequelae of granulomatous disease. 3. Stable pulmonary nodules dating back to 2021 and considered benign. No evidence for metastatic di sease within the chest.
== END | disposition home or self-care (01) ==
LOC: RADCTMAIN 13:56
DX: D49.511 Neoplasm of unspecified behavior of right kidney (principal); J84.10 Pulmonary fibrosis, unspecified; R91.8 Other nonspecific abnormal finding of lung field
CPT/HCPCS: 82565; 84520; 71270; 74178; 36415; Q9967

== ENCOUNTER → 2023-08-04 | Outpatient (CLI) | payer OTHER ==
--- NOTE | 2023-08-06 09:29 | US ---
EXAMINATION TYPE: US kidneys/renal and bladder DATE OF EXAM: 08/04/2023 COMPARISON: NONE CLINICAL INDICATION: Male, 57 years old with history of C64.1 MALIGNANT NEOPLASM OF RIGHT KIDNEY, EXC EPT R; known lesion on right kidney, no symptoms EXAM MEASUREMENTS: Right Kidney: 10.1 x 4.7 x 5.1 cm Left Kidney: 9.4 x 4.5 x 6.0 cm Right Kidney: lateral cyst = 2.2 x 1.7 x 1.4cm , and solid lesion mid pole = 2.1 x 1.5 x 1.3cm Left Kidney: No hydronephrosis or masses seen Bladder: wnl Bilateral Jets seen: left There is no evidence for hydronephrosis at this point in time. No nephrolithiasis is seen. No stanton s are identified. The urinary bladder is anechoic. Bilateral ureteral jets are seen. IMPRESSION: Solid lesion right kidney. Further evaluation with contrast-enhanced CT is recommended.
== END | disposition home or self-care (01) ==
LOC: RADUSWWP 13:13
PROVIDERS: ATTEND Urology
DX: C64.1 Malignant neoplasm of right kidney, except renal pelvis (principal); N28.89 Other specified disorders of kidney and ureter
CPT/HCPCS: 76770

== ENCOUNTER → 2023-10-12 | Outpatient (CLI) | payer OTHER ==
--- NOTE | 2023-10-12 11:45 | CTL ---
EXAMINATION TYPE: CT Low Dose Lung DATE OF EXAM ORDERED: 10/12/2023 HISTORY: Current smoker, 34 pack-year history. Lung cancer screening CT DLP: [address]DI: 2.11 mGy Automated exposure control for dose reduction was used. SCREENING VISIT: First screening visit COMPARISON: CT chest abdomen pelvis 11/21/2021, 11/24/2019, CT chest 02/02/2019. TECHNIQUE: Low dose computed tomography scan was performed through the chest at 1 mm thick sections a nd reconstructed images in multiple planes at 1 mm and [address] DIAGNOSTIC QUALITY: Satisfactory FINDINGS: Nodules: Scattered calcified granulomas. Stable right lower lobe 5.5 mm pulmonary nodule (series 8, image 51). Stable right lower lobe 5.8 mm pulmonary nodule (series 8, image 43). Stable left upper lobe 4.7 mm pulmonary nodule (series 8, image 36). Stable 5.3 mm nodule along the left major fissure favored to r epresent an intrafissural lymph node (series 8, image 36). Stable 3.8 mm nodule along the left major fissure favored to represent intrafissural lymph node (series 8, image 45). Stable left lower lobe 5. 2 mm pulmonary nodule (series 8, image 54). No new or enlarging pulmonary nodules. LUNGS: COPD: Severity: None Fibrosis: Severity: None Lymph nodes: None Other findings: None RIGHT PLEURAL SPACE: Effusion: None Calcification: None Thickening: None Pneumothorax: None LEFT PLEURAL SPACE: Effusion: None Calcification: None Thickening: None Pneumothorax: None HEART: Heart Size: Normal Coronary Calcification: None Pericardial Effusion: None OTHER FINDINGS: Upper abdomen: Punctate calcified granulomas within the spleen. Partial visualization of exophytic ri ght renal 1.9 cm cyst. Bony thorax: None Supraclavicular region: None Other: None IMPRESSION: Stable scattered pulmonary nodules measuring less than 6 mm. No new or enlarging pulmonar y nodules. CT LUNG RAD AND CT CHEST RECOMMENDATION: Lung-Rad 2 Benign Appearance or Behavior: Continue annual sc reening with LDCT in 12 months. S Modifier (other clinically significant findings): None
== END | disposition home or self-care (01) ==
LOC: RADCTMAIN 11:02
PROVIDERS: ATTEND Family Medicine
DX: Z12.2 Encounter for screening for malignant neoplasm of respiratory organs (principal); F17.210 Nicotine dependence, cigarettes, uncomplicated; R91.8 Other nonspecific abnormal finding of lung field
CPT/HCPCS: 71271

== ENCOUNTER → 2024-09-08 | Outpatient (CLI) | payer OTHER ==
--- NOTE | 2024-09-08 14:54 | US ---
EXAMINATION TYPE: US kidneys/renal and bladder DATE OF EXAM: 09/08/2024 COMPARISON: NONE CLINICAL INDICATION: Male, 58 years old with history of C64.1 MALIGNANT NEOPLASM OF RIGHT KIDNEY, EXC EPT R; Right kidney CA per patient follow up from previous. TECHNIQUE: Grayscale imaging of the bilateral kidneys and urinary bladder: FINDINGS: EXAM MEASUREMENTS: Right Kidney: 11.1 x 3.9 x 4.6 cm Left Kidney: 9.6 x 4.9 x 4.5 cm Right Kidney: Anechoic area upper pole 2.1 x 1.6 x 1.7 cm hypoechoic area 1.8 x 1.0 x 1.5 cm. Left Kidney: No hydronephrosis or masses seen Bladder: Anechoic Bilateral Jets seen: yes There is no evidence for hydronephrosis at this point in time. No nephrolithiasis is seen. No stanton s are identified. The urinary bladder is anechoic. IMPRESSION: 1. Right renal cyst [facility], , 09/08/2024 2:52 PM
== END | disposition home or self-care (01) ==
LOC: RADUSWWP 13:44
PROVIDERS: ATTEND Urology
DX: C64.1 Malignant neoplasm of right kidney, except renal pelvis (principal); N28.1 Cyst of kidney, acquired
CPT/HCPCS: 76770

== ENCOUNTER → 2024-10-12 | Outpatient (CLI) | payer OTHER ==
--- NOTE | 2024-10-15 01:51 | CTL ---
EXAMINATION TYPE: CT Low Dose Lung DATE OF EXAM: 10/12/2024 10:45 AM COMPARISON: None. SCREENING VISIT: Initial CT DIAGNOSTIC QUALITY: Satisfactory CLINICAL INDICATION: Male, 58 years old with history of Z12.2 LUNG CA SCR F17.210, Current smoker, hx of 1PPD x35yrs., Lung cancer screening, History of tobacco use. TECHNIQUE: Low dose computed tomography scan was performed through the chest at 1 mm thick sections a nd reconstructed images in the coronal plane at 1 mm thick sections. Contrast used: mL of , (none if empty) Oral contrast used: (none if empty) CT DLP: 68 mGycm, Automated exposure control for dose reduction was used. CT CTDI: 2.14 mGy, Automated exposure control for dose reduction was used. FINDINGS: LUNG NODULES: Present, detailed below: 1. There is a 0.5 cm peripheral posterior lateral left lung base nodule. Series 4 image 265. Present previously 2. There is a 0.5 cm posterior lateral right mid lung nodule. Series 4 image 248. Present previously. LUNGS: COPD: Severity: None Fibrosis: Severity: None Lymph nodes: None Other findings: None RIGHT PLEURAL SPACE: Effusion: None Calcification: None Thickening: None Pneumothorax: None LEFT PLEURAL SPACE: Effusion: None Calcification: None Thickening: None Pneumothorax: None HEART: Other: Ascending thoracic aorta at the level the main pulmonary artery measures cm. The main pulmona ry artery at the bifurcation measures cm. Heart Size: Normal Coronary calcification: No significant coronary artery calcifications. Pericardial effusion: None OTHER FINDINGS: Upper abdomen: Normal Bony thorax: Normal Supraclavicular region: Normal IMPRESSION: No suspicious enlarging nodules. Previous nodules. Stable. FOLLOW UP CT CHEST RECOMMENDATION: Follow-up low-dose CT chest one year CT LUNG RAD: Lung-Rad 2 Benign Appearance or Behavior [facility], Workstation: [facility], 10/15/2024 1:48 AM
== END | disposition home or self-care (01) ==
LOC: RADCTMAIN 10:27
PROVIDERS: ATTEND Internal Medicine Pulmonary Disease
DX: Z12.2 Encounter for screening for malignant neoplasm of respiratory organs (principal); F17.210 Nicotine dependence, cigarettes, uncomplicated
CPT/HCPCS: 71271